=== PATIENT | female | born 1960 | race Caucasian/White ===

== ENCOUNTER 2023-03-08 12:00 | Outpatient (CLI) | payer BC | END 2023-03-08 12:01 | disposition home or self-care (01) | LOC: CSHRAD 12:00 | PROVIDERS: ATTEND Internal Medicine | DX: M54.6 Pain in thoracic spine (principal); M47.814 Spondylosis without myelopathy or radiculopathy, thoracic region | CPT/HCPCS: 72070 ==

== ENCOUNTER 2023-07-19 13:00 | Outpatient (CLI) | payer BC | END 2023-07-19 13:01 | disposition home or self-care (01) | LOC: CSHMAMMO 13:00 | PROVIDERS: ATTEND Obstetrics & Gynecology | DX: Z13.820 Encounter for screening for osteoporosis (principal); M81.0 Age-related osteoporosis without current pathological fracture; M85.88 Other specified disorders of bone density and structure, other site | CPT/HCPCS: 77063; 77067; 77080 ==

== ENCOUNTER 2024-08-29 12:51 | Outpatient (CLI) | payer BC | END 2024-08-29 12:52 | disposition home or self-care (01) | LOC: CSHMAMMO 12:51 | PROVIDERS: ATTEND Obstetrics & Gynecology | DX: Z12.31 Encounter for screening mammogram for malignant neoplasm of breast (principal); N63.11 Unspecified lump in the right breast, upper outer quadrant; M81.0 Age-related osteoporosis without current pathological fracture; M85.88 Other specified disorders of bone density and structure, other site; Z80.3 Family history of malignant neoplasm of breast; Z78.0 Asymptomatic menopausal state | CPT/HCPCS: 77063; 77067; 77080 ==

== ENCOUNTER 2025-09-03 08:28 | Outpatient (CLI) | payer MEDICARE, OTHER | END 2025-09-03 08:29 | disposition home or self-care (01) | LOC: CSHMAMMO 08:28 | PROVIDERS: ATTEND Obstetrics & Gynecology | DX: N64.89 Other specified disorders of breast (principal) | CPT/HCPCS: 76642; 77065; G0279 ==